=== PATIENT | female | born 1945 | race American Indian/Alaskan Native ===

== ENCOUNTER 2018-10-02 06:57 | Day surgery (SDC) | payer MEDICARE ==
--- NOTE | 2018-10-02 07:22 | Anesthesia Day of Surgery ---
Anesthesia Day of Surgery - Day of Surgery Patient Examined: Yes Patient H&P Reviewed: Yes Patient is NPO: Yes
--- NOTE | 2018-10-02 07:26 | Anesthesia Consultation ---
Anesthesia Consult and Med Hx Date of service: 10/02/18 - Airway Anesthetic Teeth Evaluation: Good, Partials ROM Head & Neck: Adequate Mental/Hyoid Distance: Adequate Mallampati Class: Class II Intubation Access Assessment: Good - Pre-Operative Health Status ASA Pre-Surgery Classification: ASA2 Proposed Anesthetic Plan: General - Pulmonary Hx Smoking: Yes (STOPPED X 24 YRS) Hx Asthma: No Hx Sleep Apnea: No (BROOKE PRE SCREEN LOW RISK.) - Cardiovascular System Hx Hypertension: Yes (X 15 YRS) Hx Coronary Artery Disease: No (Can climb two flights of stairs) - Central Nervous System Hx Seizures: No CVA: No Hx Psychiatric Problems: Yes (Anxiety) - Gastrointestinal Hx Gastroesophageal Reflux Disease: Yes (Controlled w/ Prevacid) - Endocrine Hx Renal Disease: No Hx Non-Insulin Dependent Diabetes: Yes Hx Thyroid Disease: No Hx Hypothyroidism: No - Hematic Hx Anemia: No - Other Systems Hx Alcohol Use: Yes (occassional) Hx Cancer: No Hx Obesity: No - Additional Comments Anesthesia Medical History Comments: PONV
[2018-10-02] MEDS ORDERED: ZOFRAN IV PRN (07:28)
[2018-10-02] MEDS ORDERED: SUBLIMAZE IV PRN (07:28)
[2018-10-02] MEDS ORDERED: VERSED IV NR (08:00)
[2018-10-02] MEDS ORDERED: LACTATED RINGERS 1,000 ML IV SCH (08:00)
[2018-10-02] MEDS ORDERED: NACL BACTERIOSTATIC INFILTRATI ONE (08:03)
[2018-10-02] MEDS ORDERED: FLAGYL 500 MG/100 ML 500 MG/100 ML BAG IV NR (09:00)
[2018-10-02] MEDS ORDERED: FLAGYL 500 MG/100 ML 500 MG/100 ML BAG IV ONE (09:03)
[2018-10-02] MEDS ORDERED: SUBLIMAZE ONE (09:13)
[2018-10-02] MEDS ORDERED: DIPRIVAN 10 MG/ML IV ONE (09:13)
[2018-10-02] MEDS ORDERED: XYLOCAINE MPF 2% ONE (09:13)
[2018-10-02] MEDS ORDERED: ZOFRAN ONE (09:58)
--- NOTE | 2018-10-02 10:06 | Short Stay Summary ---
Short Stay Documentation Date of service: 10/02/18 - History H&P: obtained from office - Allergies and Medications Current Medications: Allergies latex Allergy (Intermediate, Verified 01/06/15 09:42) Rash Penicillins Allergy (Intermediate, Verified 01/06/15 09:42) Rash aspirin Allergy (Verified 09/26/18 12:54) Nausea Sulfa (Sulfonamide Antibiotics) Allergy (Verified 09/26/18 12:54) Rash codeine Adverse Reaction (Verified 01/06/15 09:11) Nausea hydrocodone Adverse Reaction (Verified 09/26/18 12:54) Itching meperidine [From Demerol] Adverse Reaction (Verified 09/26/18 12:54) Nausea Home Medications Medication Instructions Recorded Confirmed Last Taken Type AtorvaSTATin 20 mg PO DAILY 01/06/15 09/26/18 01/05/15 17:00 History Sitagliptin Phos/Metformin HCl 1 tab PO BID 01/06/15 09/26/18 01/05/15 17:00 History [Janumet 50-1,000 mg] Valsartan/Hydrochlorothiazide 1 tab PO QDAY 01/06/15 09/26/18 01/05/15 08:00 History [Diovan Hct 160-12.5 mg] busPIRone [Buspar] 15 mg PO BID 01/06/15 09/26/18 01/05/15 08:00 History glyBURIDE [Diabeta] 1.25 mg PO QAM 01/06/15 09/26/18 01/05/15 17:00 History Cholecalciferol (Vitamin D3) 2,000 unit PO QDAY 09/26/18 09/26/18 Unknown History [Vitamin D3 2,000 UNIT CAP] Esomeprazole Magnesium [Nexium 20 mg PO DAILY 09/26/18 09/26/18 Unknown History 24Hr] Multivit-Min/Iron/Folic/Lutein 1 each PO DAILY 09/26/18 09/26/18 Unknown History [Centrum Silver Women Tablet] Fitzpatrick-3 Fatty Acids/Fish Oil [Fish 1 each PO DAILY 09/26/18 09/26/18 Unknown History Oil] Active Medications Fentanyl (Sublimaze) 50 mcg IV Q5MIN PRN PRN Reason: Pain , Severe (7-10) Stop: 10/02/18 20:00 Lactated Ringer's (Lactated Ringers) 1,000 mls @ 125 mls/hr IV DIRECT BRENT Midazolam HCl (Versed) 2 mg IV PREOP NR Stop: 10/02/18 23:59 Ondansetron HCl (Zofran) 4 mg IV ONCE PRN PRN Reason: Nausea And Vomiting - Brief post op/procedure progress note Date of procedure: 10/02/18 Pre-op diagnosis: left renal stone 10mm Post-op diagnosis: same Procedure: left eswl Anesthesia: GETA Surgeon: RICARDO MCKEON Estimated blood loss: none Condition: stable - Hospital course Hospital course: taqueria,melani,flora, post op info on chart - Disposition Condition at discharge: Stable Disposition: DC-01 TO HOME OR SELFCARE Short Stay Discharge Plan Follow up with: CHARITY FARRIS MD [Primary Care Provider] - 7 Days
[2018-10-02 10:32] VITALS: BP 139/63
[2018-10-02] MEDS ORDERED: NORCO 5/325 PO PRN (10:38)
--- NOTE | 2018-10-02 13:46 | Operative Report ---
PREOPERATIVE DIAGNOSIS: Left renal stone, 10 mm. POSTOPERATIVE DIAGNOSIS: Left renal stone, 10 mm. PROCEDURE: Extracorporal shock wave lithotripsy, staged procedure. SURGEON: Ketan Banda MD ANESTHESIA: General. ESTIMATED BLOOD LOSS: Minimal. FLUIDS: Crystalloid. COMPLICATIONS: No complications. INDICATIONS: This patient is a 73-year-old female seen in the office with back pain. 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 CT of abdomen and pelvis revealed a 10 mm stone. She presents now for lithotripsy. Risks, benefits, and complications were explained. DESCRIPTION OF PROCEDURE: The patient was taken to the operative suite, placed in a supine position. After adequate general anesthesia, her stone was localized in 2 planes using fluoroscopy. Extracorporal shock wave lithotripsy was administered in maximum kV of 7 and 2500 shocks. Adequate fragmentation could be appreciated. She tolerated the procedure well. She was extubated and taken to recovery room. She will go home with Andriy Benitez and a strainer and follow up in the office. JOB# [id number] [facility]
--- NOTE | 2018-10-02 17:19 | Post Anesthesia Evaluation ---
- Post Anesthesia Evaluation Patient Participated: Yes Airway Patent: Yes Stable Respiratory Function: Yes Nausea/Vomiting: No Temp > 96.8F: Yes Pain Manageable: Yes Adequeate Hydration: Yes Anesthesia Complications: No
== END 2018-10-02 11:50 | disposition home or self-care (01) ==
LOC: OR 06:57
PROVIDERS: ATTEND Urology
DX: N20.0 Calculus of kidney (principal); I25.10 Atherosclerotic heart disease of native coronary artery without angina pectoris; E78.00 Pure hypercholesterolemia, unspecified; I10 Essential (primary) hypertension; K21.9 Gastro-esophageal reflux disease without esophagitis; E11.9 Type 2 diabetes mellitus without complications; F41.9 Anxiety disorder, unspecified; Z88.6 Allergy status to analgesic agent; Z88.2 Allergy status to sulfonamides; Z88.5 Allergy status to narcotic agent; Z88.8 Allergy status to other drugs, medicaments and biological substances; Z91.040 Latex allergy status; Z79.899 Other long term (current) drug therapy; Z87.891 Personal history of nicotine dependence; Z98.49 Cataract extraction status, unspecified eye; Z72.89 Other problems related to lifestyle; Z98.890 Other specified postprocedural states
CPT/HCPCS: 36415; 50590; 82962; 84132; J2250; J2405; J2704; J3010; J7120